=== PATIENT | male | born 1975 | race Caucasian/White ===

== ENCOUNTER 2016-06-04 15:11 | Outpatient (CLI) | payer SELFPAY ==
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
== END 2016-06-04 23:00 ==
LOC: XR SRH 15:11
DX: M47.812 Spondylosis without myelopathy or radiculopathy, cervical region (principal); M43.8X4 Other specified deforming dorsopathies, thoracic region